=== PATIENT | female | born 2000 | race Caucasian/White ===

== ENCOUNTER 2018-08-22 10:31 | Emergency (ER) | payer BC ==
[~2018-08-22] VITALS: Ht 162.6 cm; Wt 67.6 kg
[2018-08-22] MEDS ORDERED: PROMETHAZINE 25 MG/ML, 1ML IM ONE (12:00)
[2018-08-22] MEDS ORDERED: KETOROLAC 30 MG/1 ML IM ONE (12:00)
[2018-08-22 12:33] VITALS: BP 107/63
== END 2018-08-22 12:35 | disposition home or self-care (01) ==
LOC: ED 12:29
DX: S06.0X9A Concussion with loss of consciousness of unspecified duration, initial encounter (principal); R55 Syncope and collapse; R41.3 Other amnesia; X58.XXXA Exposure to other specified factors, initial encounter; Y93.89 Activity, other specified; Y92.89 Other specified places as the place of occurrence of the external cause; Y99.8 Other external cause status
CPT/HCPCS: 93005; 99283